=== PATIENT | female | born 1985 | race Caucasian/White ===

== ENCOUNTER 2022-10-16 08:00 | Outpatient (CLI) | payer MEDICAID | END 2022-10-16 23:59 | disposition home or self-care (01) | LOC: LAB 08:00 | PROVIDERS: ATTEND Family Medicine | DX: R30.0 Dysuria (principal) | CPT/HCPCS: 87086 ==

== ENCOUNTER 2023-04-26 14:46 | Outpatient (CLI) | payer MEDICAID, OTHER ==
--- NOTE | 2023-04-26 16:24 | XRAY Report ---
PROCEDURE: Cervical Spine 2 View INDICATIONS: STRAIN OF MUSCLE,FACIA AND TENDON AT NECK LEVEL TECHNIQUE: 3 view(s) of the cervical spine were acquired. COMPARISON: None. FINDINGS: Bones: No fractures or dislocations to the T1 level. The lateral masses of C1 appear intact on the odontoid view. No suspicious bony lesions. Disc space narrowing noted in the mid cervical spine. Cr aniovertebral relationships normal. Soft tissues: No prevertebral soft tissue swelling. IMPRESSION: Mid cervical spine degenerative disc disease Reviewed by: Armando Rico MD on 04/26/2023 3:22 PM SUJATHA Approved by: Armando Rico MD on 04/26/2023 3:22 PM SUJATHA Station ID: [id number]
--- NOTE | 2023-04-26 16:30 | XRAY Report ---
PROCEDURE: Lumbar Spine 2 View INDICATIONS: STRAIN OF MUSCLE,FACCIA NA TENDON OF LOWER BACK TECHNIQUE: 2 views of the lumbar spine were acquired. COMPARISON: None. FINDINGS: Bones: 5 [id number] vertebrae are present. There is normal bony alignment. No vertebral body compression fractures. No suspicious bony lesions. Soft tissues: Overlying bowel gas pattern is normal. No suspicious soft tissue calcifications. Mod erate fecal debris in the right colon IMPRESSION: Unremarkable lumbar spine radiographs. Moderate fecal debris in the right colon Reviewed by: Armando Rico MD on 04/26/2023 3:28 PM SUJATHA Approved by: Armando Rico MD on 04/26/2023 3:28 PM AKSHONDA Station ID: [id number]
--- NOTE | 2023-04-26 16:42 | XRAY Report ---
PROCEDURE: Knee 2 View RT INDICATIONS: KNEE PAIN RIGHT TECHNIQUE: 2 views of the right knee(s) were acquired. COMPARISON: None. FINDINGS: Bones: No fractures or dislocations. No suspicious bony lesions. Soft tissues: No knee joint effusion. No suspicious soft tissue calcifications or masses. IMPRESSION: No acute bony abnormality. Reviewed by: Armando Rico MD on 04/26/2023 3:41 PM AKDT Approved by: Armando Rico MD on 04/26/2023 3:41 PM AKDT Station ID: [id number]
== END 2023-04-26 14:47 | disposition home or self-care (01) ==
LOC: DI 14:46
PROVIDERS: ATTEND Family Medicine
DX: M25.561 Pain in right knee (principal); S16.1XXA Strain of muscle, fascia and tendon at neck level, initial encounter; S39.012A Strain of muscle, fascia and tendon of lower back, initial encounter; M50.30 Other cervical disc degeneration, unspecified cervical region

== ENCOUNTER 2023-06-16 12:56 | Outpatient (CLI) | payer MEDICAID ==
--- NOTE | 2023-06-17 10:13 | Mammography Report ---
BILATERAL DIGITAL SCREENING MAMMOGRAM 3D/2D: 06/16/2023 CLINICAL: Baseline exam. Routine screening. No prior exams were available for comparison. Both breasts are heterogeneously dense, which may obscure small masses (category c / 51-75% glandular tissue). No significant masses, calcifications, or other findings are seen in either breast. IMPRESSION: NEGATIVE There is no mammographic evidence of malignancy. A 1 year screening mammogram is recommended. Based on the Tyrer Cuzick model (a risk assessment model) the patients lifetime risk is 10.4% and he r 10 year risk is 1.3%. According to the ACR, ACS, and NCCN guidelines, an annual breast MRI exam maddi ng with mammogram is recommended if the patients lifetime risk is 20% or greater. This exam was interpreted at Station ID: [id number]. NOTE: For mammograms, a report in lay terms will be sent to the patient. Approximately 15% of breast malignancies will not be visualized mammographically. In the management of a palpable breast mass, a negative mammogram must not discourage biopsy of a clinically suspicious lesion. Electronically Signed By: Sang [email or web address]/[email or web address]:06/16/2023 20:12:44 letter sent: No_Letter ACR BI-RADS Category 1: Negative 3341F PARENCHYMAL PATTERN: (D) - The breast(s) demonstrate(s) heterogeneously dense fibroglandular parmichel vidales. BI-RADS CATEGORY: (1) - 1 Mammogram [id number] 1 year screening LATERALITY: (B)
== END 2023-06-16 12:57 | disposition home or self-care (01) ==
LOC: DI.N 12:56
DX: Z12.31 Encounter for screening mammogram for malignant neoplasm of breast (principal)